=== PATIENT | female | born 1980 | race Caucasian/White ===

== ENCOUNTER → 2017-11-06 | Outpatient (CLI) | payer OTHER ==
[~2017-11-06] VITALS: Ht 160 cm; Wt 68.0 kg
[~2017-11-06] MED LIST: LEXAPRO 10 MG T10 M2 PO
--- NOTE | ~2017-11-06 | P ---
[facility] [place] [address] PROCEDURE REPORT Name: GERALDINE LYNN Davidson Room #: REG MATTHEW Amadeo#: [id number] Admission: 11/06/17 Attend Phys: Nima Roland MD Discharge: Date of : 80 Report #: [id number] THIS REPORT FOR: //name// CC: Guanako Roland PROCEDURE: Pacemaker generator exchange. PREOPERATIVE DIAGNOSIS: Pacemaker elective replacement indicator. POSTOPERATIVE DIAGNOSIS: Pacemaker elective replacement indicator. HISTORY: The patient is a 37-year-old with a history of congenital AV block, status post pacemaker implantation, initially as an infant and multiple subsequent generator exchanges. Her most recent device generator exchange was in 2007, at which time new leads were placed. Her pacemaker is currently at the elective replacement interval and she is here for generator exchange. ANESTHESIA: The patient underwent MAC anesthesia with no anesthesia related complications. DESCRIPTION OF PROCEDURE: The patient underwent informed consent. We discussed the details of the procedure including the risks, which included but not limited to bleeding, infection, vascular damage and need for possible lead revisions. She understood these risks and was willing to proceed. As such, the patient was brought to the EP laboratory in a fasting and unsedated state and prepped and draped in a sterile fashion. She received IV antibiotics prior to initiation of the procedure. I injected lidocaine below the level of the left clavicle. Incision was made and the chronic pocket was opened. The device was disconnected from the preexisting leads. Of note, she does have underlying escape rhythm at 40 beats per minute. The new device was connected to the preexisting leads and tested and found to be functioning normally. The pocket was irrigated with vancomycin. I expanded the pocket slightly superiorly to make room for the new device, which had a slightly different footprint. The pocket was irrigated with vancomycin and then it was closed in 3 layers using 2-0 for the deep layer, 3-0 for the middle layer, 4-0 for the subcuticular layer. Surgical glue was placed to the outer skin layer. The patient awoke neurologically and hemodynamically intact with no complications and no significant bleeding. The explanted pacemaker was a [employer]onic model #ADDRL1, serial #[id number]. This was implanted on 05/05/2008. The newly implanted device was a [employer] model #SZ1785, serial #[id number]. The atrial and ventricular leads were both [employer], implanted on 05/05/2008. The atrial lead was model #5076, serial #[id number]. The RV lead was model #5076, serial #[id number]. The atrial lead demonstrated P-wave 2.1 millivolts, pacing impedance of 410 ohms, pacing threshold 0.5 volts at 0.5 milliseconds. The RV lead demonstrated no underlying R waves, pacing impedance of 460 ohms and the pacing threshold 0.75 volts at 0.4 milliseconds. The device is programmed to [facility] [address] [place] [address] PROCEDURE REPORT Name: JAZMYNEKARLEEGERALDINE A Room #: REG MATTHEW Childs#: [id number] Admission: 11/06/17 Attend Phys: Nima Roland MD Discharge: Date of : 80 Report #: [id number] the DDD 60-130 mode. CONCLUSIONS: 1. Successful dual-chamber pacemaker generator exchange. 2. Satisfactory atrial and right ventricular pacing and sensing thresholds. <ELECTRONICALLY SIGNED> By: Nima Roland MD 11/14/17 1516 1530 0057 Nima Roland MD /nt
[2017-11-06 10:09] LABS: ABSOLUTE NEUTROPHILS 7.5 thou/uL (1.4-8.2); BASOPHILS 0.3 % (0.0-2.0); HEMATOCRIT 41.9 % (37.0-47.0); HEMOGLOBIN 14.2 gm/dL (12.0-15.0); LYMPHOCYTES 18.5 % (24.0-44.0); MCH 31.8 pg (26.0-34.0); MCV 93.7 fL (80.0-100.0); MONOCYTES 7.9 % (1.0-8.0); PLATELET COUNT 263 thou/uL (150-400); POLYS 71.3 % (36.0-66.0); RBC 4.47 mil/uL (4.20-5.00); RDW 13.6 % (10.5-14.5); WBC 10.5 thou/uL (4.0-11.0)
[2017-11-06 10:16] LABS: CALCIUM 9.1 mg/dL (8.5-10.1); POTASSIUM 3.7 mmol/L (3.5-5.1)
[2017-11-06 10:22] LABS: TOTAL BILIRUBIN 0.5 mg/dL (<0.1-1.0); TOTAL PROTEIN 8.3 g/dL (6.4-8.2)
[2017-11-06 10:33] VITALS: BP 113/73
== END | disposition home or self-care (01) ==
LOC: CATH 08:34
PROVIDERS: Internal Medicine Cardiovascular Disease
DX: Z45.010 Encounter for checking and testing of cardiac pacemaker pulse generator [battery] (principal); I49.9 Cardiac arrhythmia, unspecified; F17.210 Nicotine dependence, cigarettes, uncomplicated; Z98.890 Other specified postprocedural states; Z79.899 Other long term (current) drug therapy
CPT/HCPCS: 62110; 62900; 70005